=== PATIENT | female | born 1980 | race Caucasian/White ===

== ENCOUNTER 2023-11-21 15:47 | Emergency (ER) | payer SELFPAY ==
[2023-11-21 15:48] VITALS: BP 109/80; PULSE 78; RESP 16; TEMP 36.3; O2SAT 96; BMI 20.2
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
--- NOTE | 2023-11-21 16:15 | RAD_ITS ---
STUDY: X-RAY RIGHT FOOT, 3 TOE REASON FOR EXAM: Female, 43 years old. Pain right great toe and tissue loss medially TECHNIQUE: 3 view(s) of the toe were obtained. COMPARISON: None. FINDINGS: Normal visualized metatarsus. Normal metatarsophalangeal (M.T.P) joint. Normal interphalangeal joints. Normal phalanges and interphalangeal joints. Skin defect and metallic shrapnel medial aspect first interphalangeal joint. RAD/Toe(s) Min 2 Views IMPRESSION: Subcutaneous foreign bodies and laceration. No fracture noted. Electronically Signed: Isai Bass MD at 16:33 EDT ,
[2023-11-21] MEDS: Lidocaine 1% (20 ml mdv) 20 ML Vial INFILT (16:33)
[2023-11-21] MEDS: Diphth,Pertuss(Acell),Tet Vac 0.5 ML Vial IM (16:34)
[2023-11-21] MEDS: Cephalexin 500 MG Capsule PO (17:42)
--- NOTE | 2023-11-22 10:39 | ED.RN ---
[facility] called to verify Rx.
== END 2023-11-21 17:51 | disposition home or self-care (01) ==
PROVIDERS: Emergency Provider Emergency Medicine; Visit Provider Emergency Medicine
DX: S91.121A Laceration with foreign body of right great toe without damage to nail, initial encounter (principal); S81.812A Laceration without foreign body, left lower leg, initial encounter; S81.832A Puncture wound without foreign body, left lower leg, initial encounter; S50.311A Abrasion of right elbow, initial encounter; V28.59XA Other motorcycle passenger injured in noncollision transport accident in traffic accident, initial encounter; Y93.89 Activity, other specified; Y99.8 Other external cause status; Y92.410 Unspecified street and highway as the place of occurrence of the external cause
CPT/HCPCS: 12002; 73660; 90715; 99284